=== PATIENT | female | born 1970 | race African-American/Black ===

== ENCOUNTER 2016-09-27 12:48 | Inpatient (IN) | payer OTHER ==
[2016-09-27 15:19] VITALS: BMI 32.9
--- NOTE | 2016-09-27 18:07 | HP ---
CIWA Score - CIWA Score Nausea/Vomitin Muscle Tremors: 4-Moderate,w/Arms Extend Anxiety: 4-Mod. Anxious/Guarded Agitation: 4-Moderately Restless Paroxysmal Sweats: 1-Minimal Palms Moist Orientation: 0-Oriented Tacttile Disturbances: 0-None Auditory Disturbances: 0-None Visual Disturbances: 0-None Headache: 0-None Present CIWA-Ar Total Score: 15 Admission ROS BHS - HPI Chief Complaint: withdrawal sx Allergies/Adverse Reactions: Allergies Allergy/AdvReac Type Severity Reaction Status Date / Time No Known Allergies Allergy Verified 09/27/16 16:41 History of Present Illness: 46 years old female with long history of alcohol cocaine nicotine dependence has hypertension, asthma gerd and bipolar ii is admitted to detox Exam Limitations: No Limitations - Ebola screening Have you traveled outside of the country in the last 21 days: No Have you had contact with anyone from an Ebola affected area: No Have you been sick,other than usual withdrawal symptoms: No Do you have a fever: No - Review of Systems Constitutional: Chills, Changes in sleep, Weight Stable EENT: reports: No Symptoms Reported Respiratory: reports: SOB with Exertion, Productive cough (yellowish) Cardiac: reports: No Symptoms Reported GI: reports: Nausea, Poor Fluid Intake, Vomiting, Indigestion, Abdominal cramping : reports: No Symptoms Reported Musculoskeletal: reports: No Symptoms Reported Integumentary: reports: No Symptoms Reported Neuro: reports: Tremors Endocrine: reports: No Symptoms Reported, Unexplained Weight Loss Psychiatric: reports: Judgement Intact, Orientated x3, Anxious, Depressed Other Systems: Reviewed and Negative Patient History - Patient Medical History Hx Anemia: No Hx Asthma: Yes Hx Chronic Obstructive Pulmonary Disease (COPD): No Hx Cancer: No Hx Cardiac Disorders: No Hx Congestive Heart Failure: No Hx Hypertension: Yes Hx Hypercholesterolemia: No Hx Pacemaker: No HX Cerebrovascular Accident: No Hx Seizures: No Hx Dementia: No Hx Diabetes: No Hx Gastrointestinal Disorders: No Hx Liver Disease: No Hx Genitourinary Disorders: No Hx Sexually Transmitted Disorders: No Hx Renal Disease (ESRD): No Hx Thyroid Disease: No Hx Human Immunodeficiency Virus (HIV): No Hx Hepatitis C: No Hx Depression: No Hx Suicide Attempt: No Hx Bipolar Disorder: Yes Hx Schizophrenia: No - Patient Surgical History Past Surgical History: No Hx Neurologic Surgery: No Hx Cataract Extraction: No Hx Cardiac Surgery: No Hx Lung Surgery: No Hx Breast Surgery: No Hx Breast Biopsy: No Hx Abdominal Surgery: No Hx Appendectomy: No Hx Cholecystectomy: No Hx Genitourinary Surgery: No Hx Orthopedic Surgery: No - PPD History Previous Implant?: Yes Documented Results: Negative w/o proof Implanted On Prior [facility] Admission?: No PPD to be Administered?: Yes - Reproductive History Patient is a Female of Child Bearing Age (11 -55 yrs old): Yes Last Menstrual Period: 09/27/16 Patient : No - Smoking Cessation Smoking history: Current every day smoker Have you smoked in the past 12 months: Yes Aproximately how many cigarettes per day: 5 Cigars Per Day: 0 Hx Chewing Tobacco Use: No Initiated information on smoking cessation: Yes 'Breaking Loose' booklet given: 09/27/16 - Substance & Tx. History Hx Alcohol Use: Yes Hx Substance Use: Yes Substance Use Type: Alcohol, Cocaine Hx Substance Use Treatment: Yes - Substances Abused Alcohol Route: Oral Frequency: Daily Amount used: LIQUOR- 2 PINTS, BEER- 1 SIX PACK Age of first use: 10 Date of Last Use: 09/27/16 Cocaine Route: Smoking Frequency: Daily Amount used: 10 bags Age of first use: 16 Date of Last Use: 09/26/16 Family Disease History - Family Disease History Family Disease History: Heart Disease: Mother (), Respiratory: Father ( ), Other: Father, Mother Admission Physical Exam BHS - Vital Signs Vital Signs: Vital Signs - 24 hr 09/27/16 15:11 Temperature 98.5 F Pulse Rate 69 Respiratory 20 Rate Blood Pressure 147/90 - Physical General Appearance: Yes: Appropriately Dressed, Mild Distress, Tremorous, Irritable, Sweating, Anxious HEENTM: Yes: Hearing grossly Normal, Normal ENT Inspection, Normocephalic, Normal Voice Respiratory: Yes: Chest Non-Tender, No Respiratory Distress, No Accessory Muscle Use, Wheezing, Expiration Neck: Yes: Supple, Trachea in good position Breast: Yes: Breasts Symetrical Cardiology: Yes: Regular Rhythm, Regular Rate, S1, S2 Abdominal: Yes: Non Tender, Soft Genitourinary: Yes: Within Normal Limits Back: Yes: Normal Inspection Musculoskeletal: Yes: full range of Motion, Gait Steady Extremities: Yes: Normal Inspection, Normal Range of Motion, Non-Tender, Tremors Neurological: Yes: Fully Oriented, Alert, Motor Strength 5/5, Normal Response, Depressed Affect Integumentary: Yes: Warm Lymphatic: Yes: Within Normal Limits - Diagnostic (1) Alcohol dependence with uncomplicated withdrawal Current Visit: Yes Status: Acute (2) Nicotine dependence Current Visit: Yes Status: Acute Qualifiers: Nicotine product type: cigarettes Substance use status: in withdrawal Qualified Code(s): F17.213 - Nicotine dependence, cigarettes, with withdrawal (3) Asthma Current Visit: Yes Status: Chronic Qualifiers: Asthma severity: mild intermittent Asthma complication type: with status asthmaticus Qualified Code(s): J45.22 - Mild intermittent asthma with status asthmaticus (4) Hypertension Current Visit: Yes Status: Chronic Qualifiers: Hypertension type: essential hypertension Qualified Code(s): I10 - Essential (primary) hypertension (5) GERD (gastroesophageal reflux disease) Current Visit: Yes Status: Chronic Qualifiers: Esophagitis presence: without esophagitis Qualified Code(s): K21.9 - Gastro-esophageal reflux disease without esophagitis (6) Bipolar II disorder Current Visit: Yes Status: Suspected Cleared for Admission S - Detox or Rehab [facility] Level of Care: Medically Managed Detox Regimen/Protocol: Librium [facility] Breath Alcohol Content Breath Alcohol Content: 0 Urine Pregancy Test - Result Urine Test Results: Negative- NO Line Present Urine Drug Screen - Results Drug Screen Negative: No Urine Drug Screen Results: SIVAKUMAR-Cocaine
[2016-09-27] MEDS ORDERED: MAG HYDROX/AL HYDROX/SIMETH 30 ML UNIT-DOSE CUP PO PRN (18:12)
[2016-09-27] MEDS ORDERED: NICOTINE POLACRILEX 2 MG GUM BC PRN (18:12)
[2016-09-27] MEDS ORDERED: ACETAMINOPHEN 325 MG TABLET (FP) PO PRN (18:12)
[2016-09-27] MEDS ORDERED: MAGNESIUM CITRATE 300 ML BOTTLE PO PRN (18:12)
[2016-09-27] MEDS ORDERED: guaiFENesin/D-METHORPHAN HB 10 ML UNIT-DOSE CUPS PO PRN (18:12)
[2016-09-27] MEDS ORDERED: diphenhydrAMINE HCL 50 MG CAPSULE PO PRN (18:12)
[2016-09-27] MEDS ORDERED: LOPERAMIDE HCL 2 MG CAPSULE PO PRN (18:12)
[2016-09-27] MEDS ORDERED: chlordiazePOXIDE HCL 25 MG CAPSULE PO PRN (18:12)
[2016-09-27] MEDS ORDERED: MENTHOL/PHENOL 1 EACH UD MM PRN (18:12)
[2016-09-27] MEDS ORDERED: hydrOXYzine PAMOATE 50 MG CAPSULE (FP) PO PRN (18:12)
[2016-09-27] MEDS ORDERED: P-EPHED 60MG/TRIPROLIDI 2.5MG TABLET PO PRN (18:12)
[2016-09-27] MEDS ORDERED: MAGNESIUM HYDROX 2400MG/30ML ORAL SUSPENSION 30 ML CUP PO PRN (18:12)
[2016-09-27] MEDS ORDERED: ALBUTEROL SO4 6.7 GM HFA INHALER IH PRN (18:16)
[2016-09-27] MEDS ORDERED: ALBUTEROL SO4 2.5/IPRATROPIUM 0.5 INH SOL 3 ML VIAL.NEB. NEB PRN (18:16)
[2016-09-27] MEDS ORDERED: cloNIDine HCL 0.1 MG TABLET PO PRN (18:18)
[2016-09-27] MEDS: amLODIPine BESYLATE 10 MG TABLET (FP) PO SCH (19:57)
[2016-09-27] MEDS: chlordiazePOXIDE HCL 25 MG CAPSULE PO SCH (22:12)
[2016-09-27] MEDS: THIAMINE HCL 100 MG TABLET (FP) PO SCH (22:12)
[2016-09-27] MEDS: RANITIDINE HCL 150 MG TABLET (FP) PO SCH (22:12)
[2016-09-28] MEDS: chlordiazePOXIDE HCL 25 MG CAPSULE PO SCH ×4 (05:17→22:21)
--- NOTE | 2016-09-28 09:50 | CONSULT ---
[facility] Psychiatric Consult - Data Date of interview: 09/28/16 Admission source: [facility] Identifying data: This is 46 years old female with history of Bipolar disorder, intoxicated with: Alcohol, Nicotine, history of Cocaine abuse. Substance Abuse History: - Smoking Cessation. Smoking history: Current every day smoker. Have you smoked in the past 12 months: Yes. Aproximately how many cigarettes per day: 5. Cigars Per Day: 0. Hx Chewing Tobacco Use: No. Initiated information on smoking cessation: Yes. 'Breaking Loose' booklet given : 09/27/16. - Substance & Tx. History. Hx Alcohol Use: Yes. Hx Substance Use : Yes. Substance Use Type: Alcohol, Cocaine. Hx Substance Use Treatment: Yes. - Substances Abused. Alcohol. Route: Oral. Frequency: Daily. Amount used: LIQUOR- 2 PINTS, BEER- 1 SIX PACK. Age of first use: 10. Date of Last Use: 09/27/16. Cocaine. Route: Smoking. Frequency: Daily. Amount used: 10 bags. Age of first use: 16. Date of Last Use: 09/26/16 Medical History: Asthma, GERD, HTN Psychiatric History: Patient reprots history of Bipolar Disorder, reports taking prior to admission: Ambien 10mg po qhjs. Trazodone 50mg po qhs Physical/Sexual Abuse/Trauma History: Denies Additional Comment: Ambien 10mg po qhjs. Trazodone 50mg po qhs Mental Status Exam - Mental Status Exam Alert and Oriented to: Person Cognitive Function: Fair Patient Appearance: Unkempt Mood: Sad Affect: Flat Patient Behavior: Sedated Speech Pattern: Delayed Voice Loudness: Mildly Soft/Quiet Thought Process: Circumstantial Thought Disorder: Being Controlled Hallucinations: Denies Suicidal Ideation: Denies Homicidal Ideation: Denies Insight/Judgement: Fair Sleep: Difficulty falling asleep Appetite: Weight gain Muscle strength/Tone: Mild Hypotonicity Gait/Station: Shuffling Additional Comments: Ambien 10mg po qhjs. Trazodone 50mg po qhs Psychiatric Findings - Problem List ([place] 1, 2,3) (1) Alcohol dependence with uncomplicated withdrawal Current Visit: Yes Status: Acute (2) Nicotine dependence Current Visit: Yes Status: Acute Qualifiers: Nicotine product type: cigarettes Substance use status: in withdrawal Qualified Code(s): F17.213 - Nicotine dependence, cigarettes, with withdrawal (3) Bipolar II disorder Current Visit: Yes Status: Suspected - Initial Treatment Plan Initial Treatment Plan: Ambien 10mg po qhjs. Trazodone 50mg po qhs
[2016-09-28 10:08] LABS: MCHC 28.5 g/dl (32.0-36.0); MEAN CELL VOLUME 56.3 fl (80-96); MEAN PLT VOLUME 9.6 fl (7.5-11.1); PLATELET COUNT 227 K/MM3 (134-434); RDW 25.3 % (11.6-15.6); WHITE BLOOD COUNT 7.9 K/mm3 (4.0-10.0)
[2016-09-28 10:15] LABS: ALBUMIN 3.7 g/dl (3.4-5.0); ANION GAP 5 (8-16); CO2 27 mmol/L (21-32); GLUCOSE,RANDOM 97 mg/dL (74-106); SGOT/AST 13 U/L (15-37); SGPT/ALT 17 U/L (12-78)
[2016-09-28 10:17] LABS: ALK PHOS 54 U/L (45-117); BILIRUBIN,TOTAL 0.3 mg/dL (0.2-1.0); CALCIUM 8.9 mg/dL (8.5-10.1); COCKROFT - GAULT 118.235; CREATININE 0.8 mg/dL (0.55-1.02); MCH 16.1 pg (25.7-33.7); TOT PROT 6.9 g/dl (6.4-8.2)
--- NOTE | 2016-09-28 10:18 | PN ---
S CIWA - CIWA Score Nausea/Vomitin-Mild Nausea/No Vomiting Muscle Tremors: 4-Moderate,w/Arms Extend Anxiety: 3 Agitation: 3 Paroxysmal Sweats: 3 Orientation: 0-Oriented Tacttile Disturbances: 0-None Auditory Disturbances: 0-None Visual Disturbances: 0-None Headache: 0-None Present CIWA-Ar Total Score: 14 S Progress Note (SOAP) Subjective: nausea sweats interrupted sleep agitation Objective: 09/28/16 10:18 Vital Signs Temperature 98.4 F 09/27/16 21:44 Pulse Rate 66 09/28/16 06:00 Respiratory Rate 18 09/28/16 06:00 Blood Pressure 135/79 09/28/16 06:00 O2 Sat by Pulse Oximetry (%) Laboratory Tests 09/28/16 06:00 WBC 7.9 RBC 4.78 Hgb 7.7 L Hct 26.9 L MCV 56.3 L MCHC 28.5 L RDW 25.3 H Plt Count 227 MPV 9.6 rest of labs pending anemia awake/alert ambulating no acute distress Assessment: 09/28/16 10:20 withdrawal sx Plan: continue detox increase fluids iron supplement tid ordered f/u pending labs
[2016-09-28] MEDS: PRENATAL VITAMINS W/ FOLIC ACID TABLET (FP) PO SCH (10:31)
[2016-09-28] MEDS: NICOTINE 14 MG/24 HOURS TOPICAL PATCH TD SCH (10:32)
[2016-09-28] MEDS: SERTRALINE HCL 50 MG TABLET (FP) PO SCH (10:32)
[2016-09-28] MEDS: RANITIDINE HCL 150 MG TABLET (FP) PO SCH ×2 (10:32→22:21)
[2016-09-28] MEDS: amLODIPine BESYLATE 10 MG TABLET (FP) PO SCH (10:32)
[2016-09-28] MEDS: FERROUS SO4 325 MG TABLET (FP) PO SCH ×2 (11:02→18:30)
[2016-09-28 11:35] LABS: ANISOCYTOSIS 2+; HYPOCHROMIA 2+; MICROCYTOSIS 1+; TARGET CELLS FEW
--- NOTE | 2016-09-28 11:57 | EKG ---
Test Reason : Blood Pressure : / mmHG Vent. Rate : 064 BPM Atrial Rate : 064 BPM P-R Int : 136 ms QRS Dur : 096 ms QT Int : 468 ms P-R-T Axes : 050 013 029 degrees QTc Int : 482 ms NORMAL SINUS RHYTHM POSSIBLE LEFT ATRIAL ENLARGEMENT PROLONGED QT ABNORMAL ECG NO PREVIOUS ECGS AVAILABLE Confirmed by CARLY MOHAMUD, KUN ([id number]) on 09/28/2016 11:57:04 AM Referred By: Confirmed By:KUN CARROLL MD
[2016-09-28 14:53] LABS: URINE APPEARANCE CLEAR; URINE BILIRUBIN NEGATIVE (NEGATIVE); URINE COLOR LTYELLOW; URINE GLUCOSE (UA) NEGATIVE (NEGATIVE); URINE KETONE NEGATIVE (NEGATIVE); URINE NITRITE NEGATIVE (NEGATIVE); URINE PROTEIN NEGATIVE (NEGATIVE); URINE UROBILINOGEN NEGATIVE E.U./dl (0.2-1.0)
[2016-09-28 14:54] LABS: URINE BLOOD 3+ (NEGATIVE); URINE LEUK ESTERASE 3+ (NEGATIVE)
[2016-09-28 15:09] LABS: URINE BACTERIA RARE /hpf (NONE SEEN); URINE RBC 80 /hpf (0-3); URINE WBC 44 /hpf (3-5)
[2016-09-28] MEDS: THIAMINE HCL 100 MG TABLET (FP) PO SCH (22:20)
[2016-09-28] MEDS: traZODone HCL 50 MG TABLET (FP) PO SCH (22:21)
[2016-09-29] MEDS: chlordiazePOXIDE HCL 25 MG CAPSULE PO SCH ×3 (05:53→17:28)
[2016-09-29] MEDS: FERROUS SO4 325 MG TABLET (FP) PO SCH ×4 (09:00→17:28)
[2016-09-29] MEDS: PRENATAL VITAMINS W/ FOLIC ACID TABLET (FP) PO SCH (10:24)
[2016-09-29] MEDS: RANITIDINE HCL 150 MG TABLET (FP) PO SCH ×2 (10:25→22:20)
[2016-09-29] MEDS: NICOTINE 14 MG/24 HOURS TOPICAL PATCH TD SCH (10:25)
[2016-09-29] MEDS: SERTRALINE HCL 50 MG TABLET (FP) PO SCH (10:25)
[2016-09-29] MEDS: amLODIPine BESYLATE 10 MG TABLET (FP) PO SCH (10:25)
--- NOTE | 2016-09-29 10:44 | PN ---
S CIWA - CIWA Score Nausea/Vomitin Muscle Tremors: 3 Anxiety: 2 Agitation: 3 Paroxysmal Sweats: 1-Minimal Palms Moist Orientation: 0-Oriented Tacttile Disturbances: 1-Very Mild Itch/Numbness Auditory Disturbances: 1-Very Mild Visual Disturbances: 1-Very Mild Sensitivity Headache: 2-Mild CIWA-Ar Total Score: 17 BHS Progress Note (SOAP) Subjective: ALERT,IRRITABLE,ANXIOUS,INTERRUPTED SLEEP,TREMOR Objective: 09/29/16 10:42 Vital Signs Temperature 98.1 F 09/29/16 09:46 Pulse Rate 80 09/29/16 09:46 Respiratory Rate 16 09/29/16 09:46 Blood Pressure 119/75 09/29/16 09:46 O2 Sat by Pulse Oximetry (%) Laboratory Last Values WBC 7.9 K/mm3 (4.0-10.0) 09/28/16 06:00 RBC 4.78 M/mm3 (3.60-5.2) 09/28/16 06:00 Hgb 7.7 GM/dL (10.7-15.3) L 09/28/16 06:00 Hct 26.9 % (32.4-45.2) L 09/28/16 06:00 MCV 56.3 fl (80-96) L 09/28/16 06:00 MCHC 28.5 g/dl (32.0-36.0) L 09/28/16 06:00 RDW 25.3 % (11.6-15.6) H 09/28/16 06:00 Plt Count 227 K/MM3 (134-434) 09/28/16 06:00 MPV 9.6 fl (7.5-11.1) 09/28/16 06:00 Hypochromic-Microcytic 2+ 09/28/16 06:00 Anisocytosis 2+ 09/28/16 06:00 Microcytosis 1+ 09/28/16 06:00 Target Cells Few 09/28/16 06:00 Sodium 139 mmol/L (136-145) 09/28/16 06:00 Potassium 4.0 mmol/L (3.5-5.1) 09/28/16 06:00 Chloride 107 mmol/L (98-107) 09/28/16 06:00 Carbon Dioxide 27 mmol/L (21-32) 09/28/16 06:00 Anion Gap 5 (8-16) L 09/28/16 06:00 BUN 19 mg/dL (7-18) H 09/28/16 06:00 Creatinine 0.8 mg/dL (0.55-1.02) 09/28/16 06:00 Creat Clearance w eGFR > 60 (>60) 09/28/16 06:00 Random Glucose 97 mg/dL (74-106) 09/28/16 06:00 Calcium 8.9 mg/dL (8.5-10.1) 09/28/16 06:00 Total Bilirubin 0.3 mg/dL (0.2-1.0) 09/28/16 06:00 AST 13 U/L (15-37) L 09/28/16 06:00 ALT 17 U/L (12-78) 09/28/16 06:00 Alkaline Phosphatase 54 U/L (45-117) 09/28/16 06:00 Total Protein 6.9 g/dl (6.4-8.2) 09/28/16 06:00 Albumin 3.7 g/dl (3.4-5.0) 09/28/16 06:00 Urine Color Ltyellow 09/28/16 10:30 Urine Appearance Clear 09/28/16 10:30 Urine pH 5.0 (5.0-8.0) 09/28/16 10:30 Ur Specific [place] 1.020 (1.005-1.025) 09/28/16 10:30 Urine Protein Negative (NEGATIVE) 09/28/16 10:30 Urine Glucose (UA) Negative (NEGATIVE) 09/28/16 10:30 Urine Ketones Negative (NEGATIVE) 09/28/16 10:30 Urine Blood 3+ (NEGATIVE) H 09/28/16 10:30 Urine Nitrite Negative (NEGATIVE) 09/28/16 10:30 Urine Bilirubin Negative (NEGATIVE) 09/28/16 10:30 Urine Urobilinogen Negative E.U./dl (0.2-1.0) 09/28/16 10:30 Ur Leukocyte Esterase 3+ (NEGATIVE) H 09/28/16 10:30 Urine RBC 80 /hpf (0-3) 09/28/16 10:30 Urine WBC 44 /hpf (3-5) 09/28/16 10:30 Ur Epithelial Cells Few /hpf (FEW) 09/28/16 10:30 Urine Bacteria Rare /hpf (NONE SEEN) 09/28/16 10:30 RPR Titer Nonreactive (NONREACTIVE) 09/28/16 06:00 PATIENT HAS ANEMIA AND ARE MENSTRUATING Assessment: 09/29/16 10:43 WITHDRAWAL SYMPTOM Plan: CONTINUE DETOX,ENCOURAGE ORAL FLUID,CONTINUE FERROUS SULFATE
--- NOTE | 2016-09-29 15:41 | PN ---
Psychiatric Progress Note Vital Signs: Vital Signs Period Temp Pulse Resp BP Sys/Knig Pulse Ox Last 24 Hr 97.0 F-98.6 F 66-81 16-20 119-143/65-88 Date of Session: 09/29/16 Chief Complaint:: insomnia HPI: Patient reports history of Bipolar Disorder, reports taking Depakote 500mg po qgs and desores to restart this medication Current Medications: Active Medications Generic Name Dose Route Start Last Admin Trade Name Freq PRN Reason Stop Dose Admin Acetaminophen 650 mg 09/27/16 18:12 Tylenol - PO Q4H PRN FEVER OR PAIN Al Hydroxide/Mg Hydroxide 30 ml 09/27/16 18:12 Mylanta Oral Suspension - PO Q6H PRN DYSPEPSIA Albuterol Sulfate 2 puff 09/27/16 18:16 Ventolin Hfa Inhaler - IH Q4H PRN SHORT OF BREATH/WHEEZING Albuterol/Ipratropium 1 amp 09/27/16 18:16 Duoneb - NEB Q6H PRN SHORTNESS OF BREATH Amlodipine Besylate 10 mg 09/27/16 19:00 09/29/16 10:25 Norvasc - PO 10 mg DAILY NEO Administration Chlordiazepoxide HCl 10 mg 09/30/16 23:00 Librium - PO 10/01/16 17:01 [id number] NEO Chlordiazepoxide HCl 25 mg 09/27/16 18:12 09/27/16 18:56 Librium - PO 09/30/16 18:11 25 mg Q4H PRN Administration WITHDRAWAL(CONT SUBST) Chlordiazepoxide HCl 25 mg 09/28/16 23:00 09/29/16 10:25 Librium - PO 09/29/16 17:01 25 mg [id number] NEO Administration Chlordiazepoxide HCl 15 mg 09/29/16 23:00 Librium - PO 09/30/16 17:01 [id number] NEO Diphenhydramine HCl 50 mg 09/27/16 18:12 Benadryl - PO HSMR1 PRN INSOMNIA Divalproex Sodium 500 mg 09/29/16 22:00 Depakote - PO HS NEO Eucalyptus/Menthol/Phenol/Sorbitol 1 each 09/27/16 18:12 Cepastat Lozenge - MM Q4H PRN SORE THROAT Ferrous Sulfate 325 mg 09/28/16 12:00 09/29/16 12:00 Feosol - PO 325 mg TIDCM NEO Administration Guaifenesin 10 ml 09/27/16 18:12 Robitussin Dm - PO Q6H PRN COUGH Hydroxyzine Pamoate 50 mg 09/27/16 18:12 Vistaril - PO Q4H PRN AGITATION Loperamide HCl 4 mg 09/27/16 18:12 Imodium - PO Q6H PRN DIARRHEA Magnesium Citrate 300 ml 09/27/16 18:12 Citroma - PO Q48H PRN CONSTIPATION Magnesium Hydroxide 30 ml 09/27/16 18:12 Milk Of Magnesia - PO DAILY PRN CONSTIPATION Nicotine 14 mg 09/28/16 10:00 09/29/16 10:25 Nicoderm Patch - TD 14 mg DAILY NEO Administration Nicotine Polacrilex 2 mg 09/27/16 18:12 Nicorette Gum - BC Q2H PRN NICOTINE REPLACEMENT RX Multivit/Folic Acid/Iron 1 tab 09/28/16 10:00 09/29/16 10:24 Vitamins (Sjr) - PO 1 tab DAILY NEO Administration Pseudoephedrine/Triprolidine 1 combo 09/27/16 18:12 Actifed - PO TID PRN NASAL CONGESTION Ranitidine HCl 150 mg 09/27/16 22:00 09/29/16 10:25 Zantac - PO 150 mg BID NEO Administration Sertraline HCl 50 mg 09/28/16 10:00 09/29/16 10:25 Zoloft - PO 50 mg DAILY NEO Administration Thiamine HCl 100 mg 09/27/16 22:00 09/28/16 22:20 Vitamin B1 - PO 100 mg HS NEO Administration Trazodone HCl 50 mg 09/28/16 22:00 09/28/16 22:21 Desyrel - PO 50 mg HS NEO Administration Zolpidem Tartrate 10 mg 09/28/16 22:00 Ambien - PO 10/01/16 21:59 HS PRN Medication(s) Change(s): Depakote 500mg po qgs Mental Status Exam - Mental Status Exam Alert and Oriented to: Person Cognitive Function: Fair Patient Appearance: Unkempt Mood: Nervous Affect: Labile Patient Behavior: Guarded, Suspicious Speech Pattern: Appropriate Voice Loudness: Mildly Loud Thought Process: Goal Oriented Thought Disorder: Being Controlled Hallucinations: Denies Suicidal Ideation: Denies Homicidal Ideation: Denies Insight/Judgement: Fair Sleep: Difficulty falling asleep Appetite: Weight gain Muscle strength/Tone: Normal Gait/Station: Normal Additional Comments: Depakote 500mg po qgs Psychiatric Treatment Plan - Problem List (1) Alcohol dependence with uncomplicated withdrawal Current Visit: Yes (2) Nicotine dependence Current Visit: Yes Qualifiers: Nicotine product type: cigarettes Substance use status: in withdrawal Qualified Code(s): F17.213 - Nicotine dependence, cigarettes, with withdrawal (3) Bipolar II disorder Current Visit: Yes (4) Bipolar disorder Current Visit: Yes Initial treatment plan: Depakote 500mg po qgs
[2016-09-29] MEDS: DIVALPROEX SODIUM 500 MG TABLET E.C. PO SCH (22:20)
[2016-09-29] MEDS: traZODone HCL 50 MG TABLET (FP) PO SCH (22:20)
[2016-09-29] MEDS: chlordiazePOXIDE 5 MG CAPSULE PO SCH (22:20)
[2016-09-29] MEDS: THIAMINE HCL 100 MG TABLET (FP) PO SCH (22:21)
[2016-09-29] MEDS: ZOLPIDEM TARTRATE 5 MG TABLET PO PRN (22:25)
[2016-09-30] MEDS: chlordiazePOXIDE 5 MG CAPSULE PO SCH ×3 (05:55→17:38)
[2016-09-30] MEDS: FERROUS SO4 325 MG TABLET (FP) PO SCH ×3 (07:51→17:38)
--- NOTE | 2016-09-30 09:35 | PN ---
S Progress Note (SOAP) Subjective: ALERT,IRRITABLE,ANXIOUS,INTERRUPTED SLEEP Objective: 09/30/16 09:34 Vital Signs Temperature 97.5 F L 09/30/16 06:34 Pulse Rate 80 09/30/16 06:34 Respiratory Rate 20 09/30/16 06:34 Blood Pressure 142/74 09/30/16 06:34 O2 Sat by Pulse Oximetry (%) Assessment: 09/30/16 09:35 WITHDRAWAL SYMPTOM Plan: CONTINUE DETOX,DISCHARGE IN AM
[2016-09-30] MEDS: PRENATAL VITAMINS W/ FOLIC ACID TABLET (FP) PO SCH (10:30)
[2016-09-30] MEDS: NICOTINE 14 MG/24 HOURS TOPICAL PATCH TD SCH (10:30)
[2016-09-30] MEDS: RANITIDINE HCL 150 MG TABLET (FP) PO SCH ×2 (10:30→22:11)
[2016-09-30] MEDS: SERTRALINE HCL 50 MG TABLET (FP) PO SCH (10:30)
[2016-09-30] MEDS: amLODIPine BESYLATE 10 MG TABLET (FP) PO SCH (10:30)
[2016-09-30] MEDS: DIVALPROEX SODIUM 500 MG TABLET E.C. PO SCH (22:11)
[2016-09-30] MEDS: ZOLPIDEM TARTRATE 5 MG TABLET PO PRN (22:11)
[2016-09-30] MEDS: chlordiazePOXIDE HCL 10 MG CAPSULE PO SCH (22:11)
[2016-09-30] MEDS: THIAMINE HCL 100 MG TABLET (FP) PO SCH (22:11)
[2016-09-30] MEDS: traZODone HCL 50 MG TABLET (FP) PO SCH (22:11)
[2016-10-01] MEDS: chlordiazePOXIDE HCL 10 MG CAPSULE PO SCH (06:35)
[2016-10-01] MEDS: FERROUS SO4 325 MG TABLET (FP) PO SCH (08:30)
[2016-10-01] MEDS: amLODIPine BESYLATE 10 MG TABLET (FP) PO SCH (10:00)
[2016-10-01] MEDS: NICOTINE 14 MG/24 HOURS TOPICAL PATCH TD SCH (10:00)
[2016-10-01] MEDS: PRENATAL VITAMINS W/ FOLIC ACID TABLET (FP) PO SCH (10:00)
[2016-10-01] MEDS: SERTRALINE HCL 50 MG TABLET (FP) PO SCH (10:00)
[2016-10-01] MEDS: RANITIDINE HCL 150 MG TABLET (FP) PO SCH (10:00)
--- NOTE | 2016-10-01 10:41 | DS ---
[facility] Detox Discharge Summary Admission Date: 09/27/16 Discharge Date: 10/01/16 - History Present History: Alcohol Dependence Pertinent Past History: Asthma GERD Hypertension - Physical Exam Results Vital Signs: Vital Signs Temperature 98.1 F 09/30/16 21:47 Pulse Rate 79 09/30/16 21:47 Respiratory Rate 18 10/01/16 03:30 Blood Pressure 141/102 09/30/16 21:47 O2 Sat by Pulse Oximetry (%) Pertinent Admission Physical Exam Findings: Withdrawal sx. Laboratory Last Values WBC 7.9 K/mm3 (4.0-10.0) 09/28/16 06:00 RBC 4.78 M/mm3 (3.60-5.2) 09/28/16 06:00 Hgb 7.7 GM/dL (10.7-15.3) L 09/28/16 06:00 Hct 26.9 % (32.4-45.2) L 09/28/16 06:00 MCV 56.3 fl (80-96) L 09/28/16 06:00 MCHC 28.5 g/dl (32.0-36.0) L 09/28/16 06:00 RDW 25.3 % (11.6-15.6) H 09/28/16 06:00 Plt Count 227 K/MM3 (134-434) 09/28/16 06:00 MPV 9.6 fl (7.5-11.1) 09/28/16 06:00 Hypochromic-Microcytic 2+ 09/28/16 06:00 Anisocytosis 2+ 09/28/16 06:00 Microcytosis 1+ 09/28/16 06:00 Target Cells Few 09/28/16 06:00 Sodium 139 mmol/L (136-145) 09/28/16 06:00 Potassium 4.0 mmol/L (3.5-5.1) 09/28/16 06:00 Chloride 107 mmol/L (98-107) 09/28/16 06:00 Carbon Dioxide 27 mmol/L (21-32) 09/28/16 06:00 Anion Gap 5 (8-16) L 09/28/16 06:00 BUN 19 mg/dL (7-18) H 09/28/16 06:00 Creatinine 0.8 mg/dL (0.55-1.02) 09/28/16 06:00 Creat Clearance w eGFR > 60 (>60) 09/28/16 06:00 Random Glucose 97 mg/dL (74-106) 09/28/16 06:00 Calcium 8.9 mg/dL (8.5-10.1) 09/28/16 06:00 Total Bilirubin 0.3 mg/dL (0.2-1.0) 09/28/16 06:00 AST 13 U/L (15-37) L 09/28/16 06:00 ALT 17 U/L (12-78) 09/28/16 06:00 Alkaline Phosphatase 54 U/L (45-117) 09/28/16 06:00 Total Protein 6.9 g/dl (6.4-8.2) 09/28/16 06:00 Albumin 3.7 g/dl (3.4-5.0) 09/28/16 06:00 Urine Color Ltyellow 09/28/16 10:30 Urine Appearance Clear 09/28/16 10:30 Urine pH 5.0 (5.0-8.0) 09/28/16 10:30 Ur Specific [place] 1.020 (1.005-1.025) 09/28/16 10:30 Urine Protein Negative (NEGATIVE) 09/28/16 10:30 Urine Glucose (UA) Negative (NEGATIVE) 09/28/16 10:30 Urine Ketones Negative (NEGATIVE) 09/28/16 10:30 Urine Blood 3+ (NEGATIVE) H 09/28/16 10:30 Urine Nitrite Negative (NEGATIVE) 09/28/16 10:30 Urine Bilirubin Negative (NEGATIVE) 09/28/16 10:30 Urine Urobilinogen Negative E.U./dl (0.2-1.0) 09/28/16 10:30 Ur Leukocyte Esterase 3+ (NEGATIVE) H 09/28/16 10:30 Urine RBC 80 /hpf (0-3) 09/28/16 10:30 Urine WBC 44 /hpf (3-5) 09/28/16 10:30 Ur Epithelial Cells Few /hpf (FEW) 09/28/16 10:30 Urine Bacteria Rare /hpf (NONE SEEN) 09/28/16 10:30 RPR Titer Nonreactive (NONREACTIVE) 09/28/16 06:00 labs noted,pt. is on feosol for anemia.She's F/U at HIV clinic - Treatment Hospital Course: Detox Protocol Followed, Detoxed Safely, Responded well, Discharged Condition Good, Rehab Referral Accepted Patient has Accepted a Rehab Referral to: [facility] - Medication Discharge Medications: Ambulatory Orders Acetaminophen [Pain Relief] 650 mg PO PRN 09/27/16 Ferrous Sulfate [Feosol] 325 mg PO DAILY 09/27/16 Zolpidem Tartrate [Ambien] 10 mg PO HS 09/27/16 Sertraline HCl [Zoloft -] 50 mg PO DAILY #30 tablet 09/28/16 Trazodone HCl [Desyrel -] 50 mg PO HS #30 tablet 09/28/16 Zolpidem Tartrate [Ambien] 0 mg PO HS #14 tablet MDD 10 09/28/16 Divalproex *ER* [Depakote *ER* -] 500 mg PO HS #30 tablet.sa 09/29/16 - Diagnosis (1) Alcohol dependence with uncomplicated withdrawal Current Visit: Yes Status: Acute (2) Nicotine dependence Current Visit: Yes Status: Acute Qualifiers: Nicotine product type: cigarettes Substance use status: in withdrawal Qualified Code(s): F17.213 - Nicotine dependence, cigarettes, with withdrawal (3) Asthma Current Visit: Yes Status: Chronic Qualifiers: Asthma severity: mild intermittent Asthma complication type: with status asthmaticus Qualified Code(s): J45.22 - Mild intermittent asthma with status asthmaticus (4) GERD (gastroesophageal reflux disease) Current Visit: Yes Status: Chronic Qualifiers: Esophagitis presence: without esophagitis Qualified Code(s): K21.9 - Gastro-esophageal reflux disease without esophagitis (5) Hypertension Current Visit: Yes Status: Chronic Qualifiers: Hypertension type: essential hypertension Qualified Code(s): I10 - Essential (primary) hypertension (6) Bipolar II disorder Current Visit: Yes Status: Suspected - AMA Did Patient Leave Against Medical Advice: No
[2016-10-01 11:02] VITALS: BP 139/77; PULSE 78; TEMP 97.9
== END 2016-10-01 10:12 | disposition home or self-care (01) | DRG 775 ==
LOC: YASAS 12:48 → Y6N 17:34
PROVIDERS: ADMIT Internal Medicine Addiction Medicine; ATTEND Internal Medicine Addiction Medicine
PROC: HZ2ZZZZ Detoxification Services for Substance Abuse Treatment (ICD-10-PCS; principal; 2016-10-01)
DX: F10.230 Alcohol dependence with withdrawal, uncomplicated (principal); F17.213 Nicotine dependence, cigarettes, with withdrawal; F31.81 Bipolar II disorder; I10 Essential (primary) hypertension; J45.22 Mild intermittent asthma with status asthmaticus; K21.9 Gastro-esophageal reflux disease without esophagitis
CPT/HCPCS: 36415; 80053; 81003; 81015; 85027; 86593; 93005; 93010